=== PATIENT | female | born 1980 | race Two or more races ===

== ENCOUNTER → 2017-07-23 | Day surgery (SDC) | payer OTHER ==
[~2017-07-23] MED LIST: BUPIVACAINE HCL 0.5 % INJ/PF 30 ML SDV ONE; LIDOCAINE 1% INJ-PF (10 MG/ML) 30 ML SDV ONE; LIDOCAINE 2% INJ (20 MG/ML) 20 ML MDV ONE; METHYLPREDNISOLONE ACETATE INJ 40 MG/1 ML ML ONE
--- NOTE | 2017-07-23 15:03 | Operative Report ---
PREOPERATIVE DIAGNOSIS: sacroilitis POSTOPERATIVE DIAGNOSIS: sacroilitis PROCEDURE: 1. Radiofrequency Ablation of [LT L5] Dorsal Ramus 2. Sacroiliac Joint Ablation - Lateral Branches of [LT S1, S2, S3] DATE OF PROCEDURE:[ 07/23/17] ANESTHESIA: [local] COMPLICATIONS: [ none] CONSENT: A full description of the procedure was provided including benefits as well as possible complications. All questions were answered and informed consent was given and signed. ASA guidelines for fasting were verified prior to sedation. PROCEDURE IN DETAIL The patient was brought into the fluoroscopy suite and carefully assisted into the prone position on the fluoroscopy table and allowed to adjust to a position of comfort. A grounding pad was placed on the [RIGHT] thigh. The low back and buttocks were widely prepped with a chloraprep solution, allowed to air dry and draped in standard sterile surgical fashion. Local anesthesia was provided by [ 1] mL of [1 ] % [lidocaine ] delivered with a 25 g needle. PROCEDURE #1: Radiofrequency Ablation of Dorsal Ramus of L5 A 17g 75mm radiofrequency introducer needle was placed to the planned anatomic target, guided with intermittent fluoroscopy with a perpendicular approach, to terminally place at the [LEFt] sacral ala. The stylet was removed and the radiofrequency probe with a 4mm active tip were then inserted. Needle tip position of the probe was verified in the AP, oblique, and lateral views. At each site, the medial branch nerve was stimulated at 2Hz to a maximum of 1- 2volts determined to finalize safe needle and electrode placement. The patient was awake and responsive during this portion of the procedure. Each target was anesthetized with 1-2mL of [2] %[ lidocaine] anesthesia for lesioning and then each target was lesioned at 80 degrees Celsius for 2 minutes and 30 seconds. Tissue impedences were noted to be between 250 and 500 Ohms. PROCEDURE #2: Radiofrequency Ablation of S1, S2, S3 Lateral Branches Using the AP fluoroscopic view for visualization of the lateral PSFA as defined by the pre-placed 27-gauge Quincke needles, appropriate skin starting positions were defined. Using the PSFA as a "clock-face", the positions were: S1; left = 11 oclock, 9 oclock and 7 oclock S2; left = 11 oclock, 9 oclock and 7 oclock S3; left = 11 oclock, 7 oclock Using fluoroscopic guidance, a 17g introducer needle was inserted sequentially onto the target positions described above until the introducer tip touched the bony surface of the sacrum. The stylet was withdrawn from the introducer and the radiofrequency probe with a 4 mm active tip was fully inserted into the introducer. A lateral view was obtained for standard reference. At each of the targets, needle placement was verified with the use of multi-planar fluoroscopy. The needle tip position was approximately 7 - 10mm lateral to the PSFA as determined by using an Epsilon ruler. At each site, the lateral branch nerve was stimulated at 2 Hz to a maximum of 1- 2 volts determined to finalize safe needle and electrode placement. The patient was awake and responsive during this portion of the procedure. Each target was anesthetized with 1-2 mL of [2 ]% [lidocaine ] anesthesia for lesioning and then each target was lesioned at 80 degrees Celsius for 2 minutes and 30 seconds. Tissue impedences were noted to be between 250- 500 Ohms. At the conclusion of the lesioning the needles were removed and bandages placed over the needle placement sites and the patient returned to the supine position on a stretcher and transported to the recovery room without hemodynamic, neurologic, or allergic reactions. Fluoroscopic images were printed for hard copy recording and digitally archived. FLUOROSCOPIC INTERPRETATION: Appropriate lesioning of the 9 targets noted. POST PROCEDURE EVALUATION: The patient was comfortable in the recovery room. The patient is aware that pain may worsen before remitting and 4 6 weeks may be required prior to the onset of pain relief. IMPRESSION: 1. Technically successful sacral lateral branch, lumbar dorsal ramus neurotomy for denervation from L5-S3 on the [LEFT] without complication. 2. RTC in [4 ] weeks. 3. Estimated Blood Loss: [ 1cc] 4. Fluoroscopy time: [see nursing record)
== END ==
LOC: RAD 13:55
PROVIDERS: ATTEND Student in an Organized Health Care Education/Training Program
DX: M47.817 Spondylosis without myelopathy or radiculopathy, lumbosacral region (principal)
CPT/HCPCS: 64635; 64640 ×3; J3490 ×3; J1020